=== PATIENT | male | born 1970 | race Caucasian/White ===

== ENCOUNTER → 2022-03-25 11:06 | Outpatient (BNVA) | payer OTHER, SELFPAY | PROVIDERS: PCP Internal Medicine; Visit Provider Nurse Practitioner Psychiatric/Mental Health | DX: Z51.81 Encounter for therapeutic drug level monitoring (principal); F11.21 Opioid dependence, in remission | CPT/HCPCS: 80305 ==

== ENCOUNTER → 2022-04-08 16:05 | Outpatient (BNVA) | payer OTHER, SELFPAY | PROVIDERS: PCP Internal Medicine; Visit Provider Nurse Practitioner Psychiatric/Mental Health | DX: Z51.81 Encounter for therapeutic drug level monitoring (principal); F11.21 Opioid dependence, in remission | CPT/HCPCS: 80305 ==

== ENCOUNTER → 2022-04-29 16:16 | Outpatient (BNVA) | payer OTHER, SELFPAY | PROVIDERS: PCP Internal Medicine; Visit Provider Nurse Practitioner Psychiatric/Mental Health | DX: F11.21 Opioid dependence, in remission (principal); Z51.81 Encounter for therapeutic drug level monitoring; Z79.899 Other long term (current) drug therapy | CPT/HCPCS: 80305 ==

== ENCOUNTER → 2022-05-28 16:23 | Outpatient (BNVA) | payer OTHER, SELFPAY | PROVIDERS: PCP Internal Medicine; Visit Provider Nurse Practitioner Psychiatric/Mental Health | DX: Z13.89 Encounter for screening for other disorder (principal) ==

== ENCOUNTER → 2022-06-25 15:30 | Outpatient (BNVA) | payer OTHER, SELFPAY | PROVIDERS: PCP Internal Medicine; Visit Provider Nurse Practitioner Psychiatric/Mental Health ==

== ENCOUNTER → 2022-07-23 16:00 | Outpatient (BNVA) | payer OTHER, SELFPAY | PROVIDERS: PCP Internal Medicine; Visit Provider Nurse Practitioner Psychiatric/Mental Health ==

== ENCOUNTER 2022-09-17 15:32 | Outpatient (AMB) | payer OTHER, SELFPAY ==
--- NOTE | 2022-09-17 15:34 | A.OFFVIS_ITS ---
Intake Vital Signs 09/17/22 15:45 BP 132/86 Blood Pressure Location Lt radial Position Sitting Pulse 73 Pulse Source Pulse Oximeter Pulse Oximetry (%) 97 Oxygen Delivery Method Room Air Intake Visit Reasons: mat visit Intake Note: The patient is here for a mat visit Director Of Exhibits Required: No Allergies No Known Allergies Allergy (Verified 09/17/22 15:34) Do you need a note to return to daycare/school/sports/work: No HPI mat visit HPI Details Patient presents for follow up Currently prescribed Suboxone 4mg QD Doing well with recovery. No questions or concerns at this time realted to medication Sharing recent challenges with MIL moving to [place] and dx of dementia Review of Systems Const Reports as per HPI and Reports no additional complaints Physical Exam Vital Signs: Last Vital Signs Pulse 73 09/17/22 15:45 BP 132/86 09/17/22 15:45 Pulse Ox 97 09/17/22 15:45 Oxygen Delivery Method Room Air 09/17/22 15:45 Const General: cooperative, healthy appearing, no acute distress and alert Nutritional Appearance: average body habitus Orientation/consciousness: patient oriented x3 Limitations: no limitations Neuro General: patient oriented x3 Psych Appearance: well kempt Mental Status: mental status grossly normal Speech and movement: Normal speech and movement present Affect: normal affect Attitude: cooperative Thought process: Normal thought process present Thought content: Normal thought content present Insight: Good insight present (Psych) Judgement: Good judgement present (Psych) Assessment & Plan Assessment & Plan (1) Opioid use disorder, moderate, in sustained remission: Code(s): F11.21 - Opioid dependence, in remission Plan: * continue suboxone at current dose * follow up 8 weeks * nicotine patch refilled as patient is working to d/c smoking Medications: New nicotine 1 patch transdermal Q24H 30 ea 0RF Refilled buprenorphine-naloxone 4-1 mg (Suboxone) 1 film sublingual DAILY 30 ea 1RF Discontinued nicotine Discontinued Reason: Doctor's Order 1 patch transdermal DAILY 28 ea 0RF Coding Level of Care Code Est Pt Level 3 (48260) Diagnoses Opioid use disorder, moderate, in sustained remission F11.21
[2022-09-17 15:45] VITALS: BP 132/86; PULSE 73; O2SAT 97
== END 2022-09-17 16:15 | disposition home or self-care (01) ==
LOC: HO.HCC 15:32
PROVIDERS: PCP Internal Medicine; Visit Provider Nurse Practitioner Psychiatric/Mental Health
DX: F11.21 Opioid dependence, in remission (principal)
CPT/HCPCS: 99213

== ENCOUNTER → 2022-09-17 15:32 | Outpatient (BNVA) | payer OTHER, SELFPAY | PROVIDERS: PCP Internal Medicine; Visit Provider Nurse Practitioner Psychiatric/Mental Health ==

== ENCOUNTER 2022-11-12 15:25 | Outpatient (AMB) | payer OTHER, SELFPAY ==
--- NOTE | 2022-11-12 15:31 | A.OFFVIS_ITS ---
Intake Vital Signs 11/12/22 15:43 BP 124/72 Blood Pressure Location Lt radial Position Sitting Pulse 88 Pulse Source Pulse Oximeter Pulse Oximetry (%) 97 Oxygen Delivery Method Room Air Intake Visit Reasons: mat visit Intake Note: The patient presents for a at visit Allergies No Known Allergies Allergy (Verified 11/12/22 15:43) Do you need a note to return to daycare/school/sports/work: No HPI mat visit HPI Details Pt presents for OUD treatment follow up Currently being prescribed Suboxone 4mg QD Denies any side effects related to medication no questions or concerns at this time patient has not smoked in 3 weeks! Review of Systems Const Reports as per HPI and Reports no additional complaints Physical Exam Vital Signs: Last Vital Signs Pulse 88 11/12/22 15:43 BP 124/72 11/12/22 15:43 Pulse Ox 97 11/12/22 15:43 Oxygen Delivery Method Room Air 11/12/22 15:43 Const General: cooperative, healthy appearing, no acute distress and alert Nutritional Appearance: average body habitus Orientation/consciousness: patient oriented x3 Limitations: no limitations Neuro General: patient oriented x3 Psych Appearance: well kempt Mental Status: mental status grossly normal Speech and movement: Normal speech and movement present Affect: normal affect Attitude: cooperative Thought process: Normal thought process present Thought content: Normal thought content present Insight: Good insight present (Psych) Judgement: Good judgement present (Psych) Assessment & Plan Assessment & Plan (1) Opioid use disorder, moderate, in sustained remission: Code(s): F11.21 - Opioid dependence, in remission Plan: * continue suboxone at current dose * follow up 8 weeks Medications: Refilled buprenorphine-naloxone 4-1 mg (Suboxone) 1 film sublingual DAILY 30 ea 1RF Coding Level of Care Code Est Pt Level 3 (85715) Diagnoses Opioid use disorder, moderate, in sustained remission F11.21
[2022-11-12 15:43] VITALS: BP 124/72; PULSE 88; O2SAT 97
== END 2022-11-12 16:10 | disposition home or self-care (01) ==
PROVIDERS: PCP Internal Medicine; Visit Provider Nurse Practitioner Psychiatric/Mental Health
DX: F11.21 Opioid dependence, in remission (principal)
CPT/HCPCS: 99213

== ENCOUNTER → 2022-11-12 15:25 | Outpatient (BNVA) | payer OTHER, SELFPAY | PROVIDERS: PCP Internal Medicine; Visit Provider Nurse Practitioner Psychiatric/Mental Health ==

== ENCOUNTER 2023-01-13 15:54 | Outpatient (AMB) | payer OTHER, SELFPAY ==
--- NOTE | 2023-01-13 15:55 | A.OFFVIS_ITS ---
Intake Vital Signs 01/13/23 16:04 BP 124/72 Blood Pressure Location Lt radial Position Sitting Pulse 70 Pulse Source Pulse Oximeter Pulse Oximetry (%) 95 Oxygen Delivery Method Room Air Intake Visit Reasons: mat visit Intake Note: the patient presents for a mat visit Acupuncturist Required: No Allergies No Known Allergies Allergy (Verified 01/13/23 15:57) Do you need a note to return to daycare/school/sports/work: No HPI mat visit HPI Details Patient presents for DESIRE treatment follow up Currently prescribed Suboxone 4mg QD Doing well with recovery Has discontinued marijuana use (edibles) over the last 2 months Review of Systems Const Reports as per HPI and Reports no additional complaints Physical Exam Vital Signs: Last Vital Signs Pulse 70 01/13/23 16:04 BP 124/72 01/13/23 16:04 Pulse Ox 95 01/13/23 16:04 Oxygen Delivery Method Room Air 01/13/23 16:04 Const General: cooperative, healthy appearing, no acute distress and alert Nutritional Appearance: average body habitus Orientation/consciousness: patient oriented x3 Limitations: no limitations Neuro General: patient oriented x3 Psych Appearance: well kempt Mental Status: mental status grossly normal Speech and movement: Normal speech and movement present Affect: normal affect Attitude: cooperative Thought process: Normal thought process present Thought content: Normal thought content present Insight: Good insight present (Psych) Judgement: Good judgement present (Psych) Assessment & Plan Assessment & Plan (1) Opioid use disorder, moderate, in sustained remission: Code(s): F11.21 - Opioid dependence, in remission Plan: * continue suboxone at current dose * follow up 8 weeks Medications: Refilled buprenorphine-naloxone 4-1 mg (Suboxone) 1 film sublingual DAILY 30 ea 1RF Discontinued nicotine Discontinued Reason: Patient no longer taking 1 patch transdermal Q24H 30 ea 0RF Coding Level of Care Code Est Pt Level 3 (33665) Diagnoses Opioid use disorder, moderate, in sustained remission F11.21
[2023-01-13 16:04] VITALS: BP 124/72; PULSE 70; O2SAT 95
== END 2023-01-13 16:31 | disposition home or self-care (01) ==
PROVIDERS: PCP Internal Medicine; Visit Provider Nurse Practitioner Psychiatric/Mental Health
DX: F11.21 Opioid dependence, in remission (principal)
CPT/HCPCS: 99213

== ENCOUNTER 2023-03-11 15:52 | Outpatient (AMB) | payer OTHER, SELFPAY ==
--- NOTE | 2023-03-11 15:56 | MHC.AM.SUB ---
Intake Vital Signs 03/11/23 16:02 BP 128/70 Blood Pressure Location Lt radial Position Sitting Pulse 74 Pulse Source Pulse Oximeter Pulse Oximetry (%) 97 Oxygen Delivery Method Room Air Intake Visit Reasons: mat visit Intake Note: THE PATIENT PRESENT FOR A MAT VISIT Journalism Instructor Required: No Allergies No Known Allergies Allergy (Verified 03/11/23 16:03) HPI mat visit HPI Details Patient presents for follow up Currently prescribed Suboxone 4mg BID No issues related to recovery Has been going to the gym and working to focus more on his health Review of Systems Const Reports as per HPI and Reports no additional complaints Physical Exam Vital Signs: Last Vital Signs Pulse 74 03/11/23 16:02 BP 128/70 03/11/23 16:02 Pulse Ox 97 03/11/23 16:02 Oxygen Delivery Method Room Air 03/11/23 16:02 Const General: cooperative, healthy appearing, no acute distress and alert Nutritional Appearance: average body habitus Orientation/consciousness: patient oriented x3 Limitations: no limitations Neuro General: patient oriented x3 Psych Appearance: well kempt Mental Status: mental status grossly normal Speech and movement: Normal speech and movement present Affect: normal affect Attitude: cooperative Thought process: Normal thought process present Thought content: Normal thought content present Insight: Good insight present (Psych) Judgement: Good judgement present (Psych) Assessment & Plan Assessment & Plan (1) Opioid use disorder, moderate, in sustained remission: Code(s): F11.21 - Opioid dependence, in remission Plan: continue suboxone at current dose follow up 8 weeks Medications: Refilled buprenorphine-naloxone 4-1 mg (Suboxone) 1 film sublingual DAILY 30 ea 1RF Coding Level of Care Code Est Pt Level 3 (50564) Diagnoses Opioid use disorder, moderate, in sustained remission F11.21
[2023-03-11 16:02] VITALS: BP 128/70; PULSE 74; O2SAT 97
== END 2023-03-11 16:32 | disposition home or self-care (01) ==
PROVIDERS: PCP Internal Medicine; Visit Provider Nurse Practitioner Psychiatric/Mental Health
DX: F11.21 Opioid dependence, in remission (principal)
CPT/HCPCS: 99213

== ENCOUNTER → 2023-03-11 15:52 | Outpatient (BNVA) | payer OTHER, SELFPAY | PROVIDERS: PCP Internal Medicine; Visit Provider Nurse Practitioner Psychiatric/Mental Health ==

== ENCOUNTER 2023-04-30 15:48 | Outpatient (AMB) | payer OTHER, SELFPAY ==
--- NOTE | 2023-04-30 15:50 | A.OFFVISCC_ITS ---
Intake Vital Signs 04/30/23 16:00 BP 128/70 Blood Pressure Location Lt radial Position Sitting Pulse 78 Pulse Source Pulse Oximeter Pulse Oximetry (%) 96 Oxygen Delivery Method Room Air Intake Visit Reasons: mat visit Intake Note: the patient presents for a mat visit Concaving Machine Operator Required: No Allergies No Known Allergies Allergy (Verified 04/30/23 15:51) Do you need a note to return to daycare/school/sports/work: No HPI mat visit HPI Details Pt presents for treatment follow up Currently being prescribed Suboxone 4mg QD Denies any side effects related to medication Denies any issues related to medication working to get healthier Review of Systems Const Reports as per HPI and Reports no additional complaints Physical Exam Vital Signs: Last Vital Signs Pulse 78 04/30/23 16:00 BP 128/70 04/30/23 16:00 Pulse Ox 96 04/30/23 16:00 Oxygen Delivery Method Room Air 04/30/23 16:00 Const General: cooperative, healthy appearing, no acute distress and alert Nutritional Appearance: average body habitus Orientation/consciousness: patient oriented x3 Limitations: no limitations Neuro General: patient oriented x3 Psych Appearance: well kempt Mental Status: mental status grossly normal Speech and movement: Normal speech and movement present Affect: normal affect Attitude: cooperative Thought process: Normal thought process present Thought content: Normal thought content present Insight: Good insight present (Psych) Judgement: Good judgement present (Psych) Assessment & Plan Assessment & Plan (1) Opioid use disorder, moderate, in sustained remission: Code(s): F11.21 - Opioid dependence, in remission Plan: * continue suboxone at current dose * follow up 8 weeks Medications: Refilled buprenorphine-naloxone 4-1 mg (Suboxone) 1 film sublingual DAILY 30 ea 1RF Coding Level of Care Code Est Pt Level 3 (67457) Diagnoses Opioid use disorder, moderate, in sustained remission F11.21
[2023-04-30 16:00] VITALS: BP 128/70; PULSE 78; O2SAT 96
== END 2023-04-30 16:20 | disposition home or self-care (01) ==
PROVIDERS: PCP Internal Medicine; Visit Provider Nurse Practitioner Psychiatric/Mental Health
DX: F11.21 Opioid dependence, in remission (principal)
CPT/HCPCS: 99213

== ENCOUNTER → 2023-04-30 15:48 | Outpatient (BNVA) | payer OTHER, SELFPAY | PROVIDERS: PCP Internal Medicine; Visit Provider Nurse Practitioner Psychiatric/Mental Health ==

== ENCOUNTER 2023-06-17 15:30 | Outpatient (AMB) | payer OTHER, SELFPAY ==
[2023-06-17 15:34] VITALS: BP 150/92; PULSE 83; O2SAT 94
--- NOTE | 2023-06-17 15:34 | MHC.AM.SUB ---
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 He feels as though he is being stalked and harassed by this gang, states the police are involved Feels as though the stress of this has caused occasional cravings - generally occurring in the afternoon. He expressed concern about increasing dose stating how he used to be on 16mg and has worked his way down to 4mg/day, but is also concerns about the cravings he has been feeling. He just got a big raise at work which he is excited about Has no other concerns today Review of Systems Const Reports as per HPI Physical Exam Vital Signs: Last Vital Signs Pulse 83 06/17/23 15:34 BP 150/92 H 06/17/23 15:34 Pulse Ox 94 06/17/23 15:34 Oxygen Delivery Method Room Air 06/17/23 15:34 Const General: cooperative and no acute distress Resp Effort & Inspection: normal respiratory effort Psych Appearance: grossly normal and well kempt Mental Status: mental status grossly normal Speech and movement: Normal speech and movement present Affect: normal affect Attitude: cooperative Thought process: Normal thought process present Assessment & Plan Assessment & Plan (1) Opioid use disorder, moderate, in sustained remission: Code(s): F11.21 - Opioid dependence, in remission Category: Medical Plan: -Discussed with him trialing the addition of 2mg for him to take in the afternoon, reviewed with him it is not a step backward, but a sign of growth to admit he is having cravings and to seek alternative solutions rather than using. He is agreeable to the 2mg trial. -Follow up 2 months Medications: New buprenorphine-naloxone 2-0.[address] 1 strip/tab under (each) side of tongue 1 film buccal DAILY 30 ea 0RF buprenorphine-naloxone 2-[address] 1 strip/tab under (each) side of tongue 1 film buccal DAILY 10 ea 0RF
== END 2023-06-17 16:01 | disposition home or self-care (01) ==
PROVIDERS: PCP Internal Medicine; Visit Provider Nurse Practitioner Family
DX: F11.21 Opioid dependence, in remission (principal)
CPT/HCPCS: 99213

== ENCOUNTER → 2023-06-17 15:30 | Outpatient (BNVA) | payer OTHER, SELFPAY | PROVIDERS: PCP Internal Medicine; Visit Provider Nurse Practitioner Family ==

== ENCOUNTER 2023-08-29 13:54 | Outpatient (AMB) | payer OTHER, SELFPAY ==
--- NOTE | 2023-08-29 15:20 | A.OFFVISCC_ITS ---
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 No definitive plans have been made Review of Systems Const Reports as per HPI and Reports no additional complaints Physical Exam Const General: cooperative and no acute distress Resp Effort & Inspection: normal respiratory effort Psych Appearance: grossly normal and well kempt Mental Status: mental status grossly normal Speech and movement: Normal speech and movement present Affect: normal affect Attitude: cooperative Thought process: Normal thought process present Assessment & Plan Assessment & Plan (1) Opioid use disorder, moderate, in sustained remission: Code(s): F11.21 - Opioid dependence, in remission Category: Medical Plan: * continue suboxone at current dose * follow up 2 months Medications: Refilled buprenorphine-naloxone 4-1 mg (Suboxone) 1 film sublingual DAILY 30 ea 1RF
== END 2023-08-29 14:41 | disposition home or self-care (01) ==
PROVIDERS: PCP Internal Medicine; Visit Provider Nurse Practitioner Psychiatric/Mental Health
DX: F11.21 Opioid dependence, in remission (principal)
CPT/HCPCS: 99213

== ENCOUNTER → 2023-08-29 13:54 | Outpatient (BNVA) | payer OTHER, SELFPAY | PROVIDERS: PCP Internal Medicine; Visit Provider Nurse Practitioner Psychiatric/Mental Health ==

== ENCOUNTER → 2023-10-27 15:56 | Outpatient (BNVA) | payer OTHER, SELFPAY | PROVIDERS: PCP Internal Medicine ==

== ENCOUNTER → 2023-12-01 15:34 | Outpatient (BNVA) | payer OTHER, SELFPAY | PROVIDERS: PCP Internal Medicine; Visit Provider Nurse Practitioner Psychiatric/Mental Health ==

== ENCOUNTER → 2023-12-23 14:10 | Outpatient (BNVA) | payer OTHER, SELFPAY | PROVIDERS: PCP Internal Medicine ==

== ENCOUNTER 2024-01-26 15:38 | Outpatient (AMB) | payer OTHER, SELFPAY ==
--- NOTE | 2024-01-26 15:51 | A.OFFVISCC_ITS ---
Intake Visit Reasons: MAT Office Allergies No Known Allergies Allergy (Verified 04/30/23 15:51) Medication List - Last Reconciled 01/26/24 by Tracy Soria CNP alprazolam ER (Xanax XR) 6 mg PO BEDTIME buprenorphine-naloxone 2-0.5 mg 1 film buccal DAILY buprenorphine-naloxone 4-1 mg (Suboxone) 1 film sublingual DAILY clonazepam (Klonopin) 1 mg PO BEDTIME mirtazapine (Remeron SolTab) 45 mg PO BEDTIME HPI HPI MAT Office: Details: Patient presents for follow up Currently prescribed Suboxone 6mg daily Doing well with this dose, however does not want to continue past this month Has not been able to connect with therapist--had to reschedule intake due to weather However, is hoping for someplace closer to his home. Provided with additional resources on locating providers Review of Systems Const Reports as per HPI and Reports no additional complaints Physical Exam Const General: cooperative and no acute distress Resp Effort & Inspection: normal respiratory effort Psych Appearance: grossly normal and well kempt Mental Status: mental status grossly normal Speech and movement: Normal speech and movement present Affect: normal affect Attitude: cooperative Thought process: Normal thought process present Assessment & Plan Assessment & Plan (1) Opioid use disorder, moderate, in sustained remission: Code(s): F11.21 - Opioid dependence, in remission Category: Medical Plan: * continue suboxone at current dose * follow up 2 months * encouraged to call office should he need to be seen before next scheduled appt Medications: New valacyclovir 500 mg PO DAILY Refilled buprenorphine-naloxone 2-0.5 mg 1 film buccal DAILY 10 ea 1RF
== END 2024-01-26 16:26 | disposition home or self-care (01) ==
PROVIDERS: PCP Internal Medicine; Visit Provider Nurse Practitioner Psychiatric/Mental Health
DX: F11.21 Opioid dependence, in remission (principal)
CPT/HCPCS: 99213

== ENCOUNTER 2024-04-12 15:41 | Outpatient (AMB) | payer OTHER, SELFPAY ==
--- NOTE | 2024-04-12 16:17 | A.OFFVISCC_ITS ---
Intake Visit Reasons: MAT Office Allergies No Known Allergies Allergy (Verified 04/30/23 15:51) HPI HPI MAT Office: Details: Patient presents for follow up Currently prescribed Suboxone 4mg daily Increased stress at home and new PCP who he reports is questioning ongoing benzodiazepine prescriptions Would like to get into therapy--plans on calling tomorrow to establish care Denies any issues related to recovery or medication Review of Systems Const Reports as per HPI Psych Reports anxiety and Reports difficulty concentrating Physical Exam Const General: cooperative and no acute distress Resp Effort & Inspection: normal respiratory effort Psych Appearance: grossly normal and well kempt Mental Status: mental status grossly normal Speech and movement: Normal speech and movement present Affect: Anxious affect present Attitude: cooperative Thought process: Normal thought process present Insight: Good insight present (Psych) Judgement: Good judgement present (Psych) Assessment & Plan Assessment & Plan (1) Opioid use disorder, moderate, in sustained remission: Code(s): F11.21 - Opioid dependence, in remission Category: Medical Plan: * continue suboxone at current dose * patient to call therapist to establish care * follow up 1 month
== END 2024-04-12 16:55 | disposition home or self-care (01) ==
PROVIDERS: PCP Internal Medicine; Visit Provider Nurse Practitioner Psychiatric/Mental Health
DX: F11.21 Opioid dependence, in remission (principal)
CPT/HCPCS: 99213

== ENCOUNTER → 2024-04-12 15:41 | Outpatient (BNVA) | payer OTHER, SELFPAY | PROVIDERS: PCP Internal Medicine; Visit Provider Nurse Practitioner Psychiatric/Mental Health ==

== ENCOUNTER 2024-05-12 16:31 | Outpatient (AMB) | payer OTHER, SELFPAY ==
[2024-05-12 17:03] VITALS: PULSE 76; O2SAT 98
--- NOTE | 2024-05-12 17:03 | MHC.OFFVIS ---
Vital Signs 05/12/24 17:03 Weight 236 lb Pulse 76 Pulse Source Pulse Oximeter Pulse Oximetry (%) 98 Oxygen Delivery Method Room Air Intake Visit Reasons: MAT Office Allergies No Known Allergies Allergy (Verified 05/12/24 17:04) HPI HPI MAT Office: Details: He is trying to taper off Suboxone. He is using 4/1 a day and sometimes not enough. He has used opioids and cocaine in past. Review of Systems Const All systems reviewed & are unremarkable except as noted in HPI and below Physical Exam Vital Signs: Last Vital Signs Pulse 76 05/12/24 17:03 Pulse Ox 98 05/12/24 17:03 Oxygen Delivery Method Room Air 05/12/24 17:03 Const General: cooperative Assessment & Plan Assessment & Plan (1) Opioid use disorder, moderate, in sustained remission: Comment: He has been doing well but needs 8 mg some days He is going to get checked for PTSD due to prior trauma Code(s): F11.21 - Opioid dependence, in remission Category: Medical Plan: Increase to 8 mg daily See in one month. Check labs. Orders: Orders HIV Ab/Ag Today F11.21 - Opioid dependence, in remission T Spot TB Today F11.21 - Opioid dependence, in remission Hepatitis A IgG Today F11.21 - Opioid dependence, in remission Hepatitis C Antibody Reflex Today F11.21 - Opioid dependence, in remission Hepatitis B Surface Antibody Today F11.21 - Opioid dependence, in remission Hepatitis B Surface Antigen Today F11.21 - Opioid dependence, in remission Hepatitis B Core Antibody Today F11.21 - Opioid dependence, in remission Syphilis Screen Today F11.21 - Opioid dependence, in remission Medications: New buprenorphine-naloxone 4-1 mg (Suboxone) place 1 strip/tab under (each) side of tongue 2 film buccal Q24H 30 days 60 ea 0RF Coding Level of Care Code Est Pt Level 3 (73512) Diagnoses Opioid use disorder, moderate, in sustained remission F11.21
== END 2024-05-12 17:26 | disposition home or self-care (01) ==
LOC: HO.HCC 16:31
PROVIDERS: PCP Internal Medicine; Visit Provider Internal Medicine
DX: F11.21 Opioid dependence, in remission (principal)
CPT/HCPCS: 99213

== ENCOUNTER → 2024-05-12 16:31 | Outpatient (BNVA) | payer OTHER, SELFPAY | PROVIDERS: PCP Internal Medicine; Visit Provider Internal Medicine ==

== ENCOUNTER 2024-08-26 13:34 | Outpatient (AMB) | payer OTHER, SELFPAY ==
[2024-08-26 14:08] VITALS: BP 146/80; PULSE 86; O2SAT 98
--- NOTE | 2024-08-26 14:08 | MHC.OFFVIS ---
Vital Signs 08/26/24 14:08 Weight 237 lb BP 146/80 H Pulse 86 Pulse Oximetry (%) 98 Intake Visit Reasons: MAT/ patient is asking about Brixadi Allergies No Known Allergies Allergy (Verified 08/26/24 14:10) Medication List - Last Reconciled 08/26/24 by CLARI Hinton mirtazapine (Remeron SolTab) 45 mg PO BEDTIME valacyclovir 500 mg PO DAILY HPI Comments Details: The patient is a 54-year-old male presents for a follow-up r/t substance use disorder. Reports in May was inpatient at [facility] for 6 days for detox from benzodiazepines and alcohol use. Post discharge from hospital went to [facility] for a 30 day inpatient program currently in a partial hospitalization program through [facility] in [place] and is living in a sober house. Denies opiate, alcohol, or other substance. Currently on buprenorphine-naloxone 8-2 mg daily and looking to reduce the dose, as his goal is to stop taking buprenorphine-naloxone. Review of Systems Const All systems reviewed & are unremarkable except as noted in HPI and below Physical Exam Vital Signs: Last Vital Signs Pulse 86 08/26/24 14:08 BP 146/80 H 08/26/24 14:08 Pulse Ox 98 08/26/24 14:08 Const General: cooperative Psych Appearance: well kempt Mental Status: mental status grossly normal Speech and movement: Normal speech and movement present Affect: Blunted affect present Attitude: cooperative Thought process: Normal thought process present Thought content: Normal thought content present Insight: Good insight present (Psych) Judgement: Good judgement present (Psych) Assessment & Plan Assessment & Plan (1) Opioid use disorder, moderate, in sustained remission: Code(s): F11.21 - Opioid dependence, in remission Category: Medical Plan The plan of care is to start on lower dose of buprenorphine-naloxone 4-1 mg daily. During the visit the patient asked about Brixadi, after education patient decided to proceed with a lower dose of buprenorphine-naloxone as his goal is to stop taking the medication. Medications: New buprenorphine-naloxone 4-1 mg (Suboxone) one film sublingually daily. 1 film sublingual Q24H 14 ea 0RF 14 days Patient Instructions: - Start on lower dose of sublingual buprenorphine-naloxone 4-1 mg daily. - Follow up in two weeks r sooner, if needed. - Call with questions, concerns, or side effects. Coding Level of Care Code Est Pt Level 3 (56690) Diagnoses Opioid use disorder, moderate, in sustained remission F11.21
--- OUTSIDE RECORDS SUMMARY | 2024-08-26 14:10 | XMS_ITS | Clinical Summary ---
Author Organization LL [address] [facility] Address [address] [place] [address] Phone Care Team Providers Care Digital Performance Analyst Name Role Phone Jose Angel Blair MD Primary Care Provide r Allergies No known active allergies Medications valACYclovir (VALTREX) 500 mg tablet Take 1 tablet (500 mg total) by mouth 1 (one) time each day. 5 Active folic acid (FOLVITE) 1 mg tablet Take 1 tablet (1 mg total) by mouth 1 (one) time each day. 30 each 11 5 06/12/19 26 Active mirtazapine (REMERON) 30 mg tablet Take 1 tablet (30 mg total) by mouth at bedtime. 30 each 5 Active gabapentin (NEURONTIN) 100 mg tablet Take 8 tablets (800 mg total) by mouth 3 (three) times a day for 3 days, THEN 6 tablets (600 mg total) 3 (three) times a day for 5 days, THEN 6 tablets (600 mg total) 2 (two) times a day for 5 days, THEN 3 tablets (300 mg total) 3 (three) times a day for 5 days, THEN 3 tablets (300 mg total) 2 (two) times a day for 5 days, THEN 3 tablets (300 mg total) at bedtime for 5 days. 5 Active naloxone (NARCAN) 4 mg/0.1 mL nasal sprayIndications :opioid overdose,opioid- induced respiratory depression Administer 1 each (4 mg total) into affected nostril(s) if needed for opioid reversal or respiratory depression. Give 4 mg (1 spray) into one nostril. May repeat every 2-3 minutes if needed, alternating nostrils, until medical assistance becomes available. 2 each 3 5 Active venlafaxine XR (EFFEXOR-XR) 75 mg 24 hr capsule Take 1 capsule (75 mg total) by mouth 1 (one) time each day with breakfast. Do not crush or chew. 30 each 11 5 06/16/19 26 Active Active Problems Problem Noted Date Diagnosed Date Alcohol use disorder 06/11/2024 Benzodiazepine withdrawal wi th complication ([facility] V24, [facility] V28) 06/08/2024 Resolved Problems Problem Noted Date Diagnosed Date Resolved Date Alcohol withdrawal syndrome without complication ([facility] V24, [facility] V28) 06/11/2024 06/11/2024 Encounters Date Type Department Care Team Description 06/08/2024 3:14 PM EDT - 06/14/2024 4:28 PM EDT Hospital Encounter [facility] [address] [place] [address] Peter Narvaez MD Japaridze, Anna, MD Zipagan, James T, MD Benzodiazepine withdrawal with complication ([facility] V24, [facility] V28) (Primary Dx); Alcohol use disorder; Alcohol withdrawal syndrome without complication ([facility] V24, [facility] V28) Discharge Disposition: Another Health Care Institution Not Defined 06/07/2024 9:30 PM EDT - 06/07/2024 11:25 PM EDT Emergency [facility] Emergency [address] [place] [address] Saul Cordoba MD Benzodiazepine withdrawal without complication ([facility] V24, [facility] V28) (Primary Dx); Alcohol withdrawal syndrome without complication ([facility] V24, [facility] V28) Discharge Disposition: Home or Self Care from Last 3 Months Medical History Medical History Date Comments ETOH abuse Opiate dependence ([facility] V24, [facility] V28) Anxiety Depression Insomnia Family History Medical History Relation Name Comments Alcohol abuse Father Relation Name Status Comments Father Social History Tobacco Use Types Packs/Day Years Used Date Smoking Tobacco: Every Day Cigarettes Smokeless Tobacco: Never Tobacco Cessation:Ready to Q uit: Not Asked; Counseling Given: Not Answered Alcohol Use Standard Drinks/Week Comments Yes 0 (1 standard drink = 0.6 oz pur e alcohol) Heavy Interpersonal Safety Answer Date Record ed Physical Abuse 06/09/2024 Verbal Abuse 06/09/2024 Sex and Gender Information Value Date Recorded Sex Assigned at Male 06/08/2024 4:53 PM EDT Legal Sex Male 5:34 AM EST Gender Identity Male 06/08/2024 4:53 PM EDT Sexual Orientation Straight 06/08/2024 4: 53 PM EDT Obstetrics History Last Filed Vital Signs Vital Sign Reading Time Taken Comments Blood Pressure 131/90 06/14/2024 3:21 PM EDT Pulse 71 06/14/2024 3:21 PM EDT Temperature 36.3 C (97.4 F) 06/14/2024 3:21 PM EDT Respiratory Rate 16 06/14/2024 3:21 PM EDT Oxygen Saturation 97% 06/14/2024 3:21 PM EDT Inhaled Oxygen Concentration - - Weight 103 kg (226 lb 6.4 oz) 06/09/2024 2:24 AM EDT Height 188 cm (6' 2.02 ) 06/09/2024 2:24 AM EDT Body Mass Index 29.06 06/09/2024 2:24 AM EDT Plan of Treatment Health Maintenance Due Date Last Done Comments Hepatitis A Vaccines (1 of 2 - Risk 2-dose series) 1987 Hepatitis B Vaccines (1 of 3 - 19+ 3-dose series) 1987 Pneumococcal Vaccine: 50+ Years (1 of 2 - PCV) 1987 Pneumococcal Vaccine: Pediatrics (0 to 5 Years) and At-Risk Patients (6 to 49 Years) (1 of 2 - PCV) 1987 Cholesterol Screening (Lipid Panel) 03/16/2024 Colorectal Cancer Screening: Colonoscopy 03/16/2024 Depression Screening 03/16/2024 HIV Screening 03/16/2024 Hepatitis C Screening 03/16/2024 Social Influencers of Health Screening 03/16/2024 Influenza Vaccine (#1) 2024 12/23/2023, 2015 DTaP,Tdap,and Td Vaccines (2 - Td or Tdap) 12/26/2030 12/26/2020 Zoster Vaccines Completed 11/15/2021, 09/13/2021 COVID-19 Vaccine Completed 12/23/2023, , 05/25/2021, Additional history exists HIB Vaccines Aged Out No longer eligi ble based on patient's age to complete this topic HPV Vaccines Aged Out No longer eligi ble based on patient's age to complete this topic IPV Vaccines Aged Out No longer eligi ble based on patient's age to complete this topic MMR Vaccines Aged Out No longer eligi ble based on patient's age to complete this topic Meningococcal ACWY Vaccine Aged Out N o longer eligible based on patient's age to complete this topic Meningococcal B Vaccine Aged Out No l onger eligible based on patient's age to complete this topic RSV Immunization Patients Under 20 months Aged Out No longer eligible based on patient's age to complete this topic Varicella Vaccines Aged Out No longer eligible based on patient's age to complete this topic Procedures Procedure Name Priority Date/Time Associated Diagnosis Comments ECG ANNOTATED 06/15/2024 CBC WITH AUTO DIFFERENTIAL Routine 06/13/2024 6:03 AM EDT CBC AND DIFFERENTIAL Routine 06/13/2024 6:03 AM EDT BASIC METABOLIC PANEL Routine 06/13/2024 6:03 AM EDT CBC WITH AUTO DIFFERENTIAL Routine 06/10/2024 5:42 AM EDT MAGNESIUM Routine 06/10/2024 5:42 AM EDT CBC AND DIFFERENTIAL Routine 06/10/2024 5:42 AM EDT BASIC METABOLIC PANEL Routine 06/10/2024 5:42 AM EDT PHOSPHORUS Add-On 06/09/2024 5:42 AM EDT MAGNESIUM Add-On 06/09/2024 5:42 AM EDT COMPLETE BLOOD COUNT Routine 06/09/2024 5:42 AM EDT BASIC METABOLIC PANEL Routine 06/09/2024 5:42 AM EDT METHADONE SCREEN, URINE STAT 06/08/2024 3:41 PM EDT PHENCYCLIDINE, URINE STAT 06/08/2024 3:41 PM EDT BUPRENORPHINE SCREEN, URINE STAT 06/08/2024 3:41 PM EDT DRUG ABUSE SCREEN 8A PANEL, URINE STAT 06/08/2024 3:41 PM EDT CBC WITH AUTO DIFFERENTIAL STAT 06/08/2024 3:25 PM EDT ACETAMINOPHEN LEVEL STAT 06/08/2024 3 :25 PM EDT SALICYLATE LEVEL STAT 06/08/2024 3:25 PM EDT CBC AND DIFFERENTIAL STAT 06/08/2024 3:25 PM EDT COMPREHENSIVE METABOLIC PANEL STAT 06/08/2024 3:25 PM EDT LIPASE STAT 06/08/2024 3:25 PM EDT MAGNESIUM STAT 06/08/2024 3:25 PM EDT ETHANOL STAT 06/08/2024 3:25 PM EDT ECG 12-LEAD STAT 06/08/2024 3:21 PM EDT CBC WITH AUTO DIFFERENTIAL STAT 06/07/2024 4:50 PM EDT COMPREHENSIVE METABOLIC PANEL STAT 06/07/2024 4:50 PM EDT CBC AND DIFFERENTIAL STAT 06/07/2024 4:50 PM EDT from Last 3 Months Results * ECG-Annotated (06/15/2024) us Provider Onbase MD ECG ORDERABLES Final Result * (ABNORMAL) CBC auto differential (06/13/2024 6:03 AM EDT) Only the most recent of4 resultswithin the time period is included. WBC 8.8 4.8 - 10.8 K/mcL LAB HEMETOLOGY METHOD 06/13/2024 7:01 AM [facility] RBC 4.60 4.50 - 5.50 M/mcL LAB HEMETOLOGY METHOD 06/13/2024 7:01 AM [facility] Hemoglobin 14.8 13.5 - 17.5 g/dL LAB HEMETOLOGY METHOD 06/13/2024 7:01 AM [facility] Hematocrit 43.4 42.0 - 54.0 % LAB HEMETOLOGY METHOD 06/13/2024 7:01 AM [facility] MCV 93.5 79.0 - 98.0 FL LAB HEMETOLOGY METHOD 06/13/2024 7:01 AM [facility] MCH 31.9 27.0 - 32.0 pcg LAB HEMETOLOGY METHOD 06/13/2024 7:01 AM [facility] MCHC 34.1 32.0 - 37.0 g/dL LAB HEMETOLOGY METHOD 06/13/2024 7:01 AM [facility] RDW 11.9 11.0 - 15.0 % LAB HEMETOLOGY METHOD 06/13/2024 7:01 AM [facility] Platelets 202 130 - 400 K/mcL LAB HEMETOLOGY METHOD 06/13/2024 7:01 AM [facility] MPV 12.2(H) 7.0 - 11.0 FL LAB HEMETOLOGY METHOD 06/13/2024 7:01 AM [facility] NRBC 0.0 <1.0 % LAB HEMETOLOGY METHOD 06/13/2024 7:01 AM [facility] NRBC Absolute 0.00 <0.10 K/mcL LAB HEMETOLOGY METHOD 06/13/2024 7:01 AM [facility] Neutrophils Relative 64.3 % LAB HEMETOLOGY METHOD 06/13/2024 7:01 AM [facility] Lymphocytes Relative 25.6 % LAB HEMETOLOGY METHOD 06/13/2024 7:01 AM [facility] Monocytes Relative 6.5 % LAB HEMETOLOGY METHOD 06/13/2024 7:01 AM [facility] Eosinophils Relative 2.5 % LAB HEMETOLOGY METHOD 06/13/2024 7:01 AM [facility] Basophils Relative 0.8 % LAB HEMETOLOGY METHOD 06/13/2024 7:01 AM [facility] Immature Granulocytes Relative 0.3 % LAB HEMETOLOGY METHOD 06/13/2024 7:01 AM [facility] Neutrophils Absolute 5.64 1.50 - 7.00 K/mcL LAB HEMETOLOGY METHOD 06/13/2024 7:01 AM [facility] Lymphocytes Absolute 2.25 1.00 - 5.00 K/mcL LAB HEMETOLOGY METHOD 06/13/2024 7:01 AM [facility] Monocytes Absolute 0.57 0.20 - 1.00 K/mcL LAB HEMETOLOGY METHOD 06/13/2024 7:01 AM [facility] Eosinophils Absolute 0.22 0.00 - 0.50 K/mcL LAB HEMETOLOGY METHOD 06/13/2024 7:01 AM [facility] Basophils Absolute 0.07 0.00 - 0.20 K/mcL LAB HEMETOLOGY METHOD 06/13/2024 7:01 AM [facility] Immature Granulocytes Absolute 0.03 0.00 - 0.03 K/mcL LAB HEMETOLOGY METHOD 06/13/2024 7:01 AM [facility] Blood Venous blood specimen / Unknown Venipuncture / Unknown 06/13/2024 6:03 AM EDT 06/13/2024 6:48 AM EDT us Joan Berger MD LAB BLOOD ORDERABLES Final Res ult [facility] [address] [place] [address], [place] [phone] * (ABNORMAL) Basic metabolic panel (06/13/2024 6:03 AM EDT) Only the most recent of3 resultswithin the time period is included. Sodium 136 133 - 145 mmol/L LAB CHEMISTRY METHOD 06/13/2024 7:22 AM [facility] Potassium 4.0 3.5 - 5.5 mmol/L LAB CHEMISTRY METHOD 06/13/2024 7:22 AM [facility] Chloride 101 96 - 110 mmol/L LAB CHEMISTRY METHOD 06/13/2024 7:22 AM [facility] CO2 30 21 - 32 mmol/L LAB CHEMISTRY METHOD 06/13/2024 7:22 AM [facility] Anion Gap 5 3 - 11 LAB CHEMISTRY METHOD 06/13/2024 7:22 AM [facility] Glucose 99 70 - 100 mg/dL LAB CHEMISTRY METHOD 06/13/2024 7:22 AM [facility] BUN 9 5 - 25 mg/dL LAB CHEMISTRY METHOD 06/13/2024 7:22 AM [facility] Creatinine 0.68(L) 0.70 - 1.30 mg/dL LAB CHEMISTRY METHOD 06/13/2024 7:22 AM [facility] eGFR 109 >=60 mL/min/1. 73m2 LAB CHEMISTRY METHOD 06/13/2024 7:22 AM EDT [facility] Comment:Calculation based on the Chronic Kidney Disease Epidemiology Collaboration (CKD-EPI) equation refit without adjustment for race. BUN/Creatinine Ratio 13.2 LAB CHEMISTRY METHOD 06/13/2024 7:22 AM EDT [facility] Calcium 9.2 8.5 - 10.5 mg/dL LAB CHEMISTRY METHOD 06/13/2024 7:22 AM EDT [facility] Blood Venous blood specimen / Unknown Venipuncture / Unknown 06/13/2024 6:03 AM EDT 06/13/2024 6:47 AM EDT us Joan Berger MD LAB BLOOD ORDERABLES Final Res ult Performing Organization Address [facility]/ZIP Co de Phone Number [facility] [address] [place] [address], [place] [phone] * Magnesium (06/10/2024 5:42 AM EDT) Only the most recent of3 resultswithin the time period is included. Magnesium 2.4 1.9 - 2.6 mg/dL LAB CHEMISTRY METHOD 06/10/2024 7:12 AM EDT [facility] Blood Venous blood specimen / Unknown Venipuncture / Unknown 06/10/2024 5:42 AM EDT 06/10/2024 6:20 AM EDT us Joan Berger MD LAB BLOOD ORDERABLES Final Res ult Performing Organization Address City/[facility]/ZIP Co de Phone Number [facility] [address] [place] [address], [place] [phone] * (ABNORMAL) Complete blood count (06/09/2024 5:42 AM EDT) WBC 7.3 4.8 - 10.8 K/mcL LAB HEMETOLOGY METHOD 06/09/2024 8:57 AM [facility] RBC 4.40(L) 4.50 - 5.50 M/mcL LAB HEMETOLOGY METHOD 06/09/2024 8:57 AM [facility] Hemoglobin 14.1 13.5 - 17.5 g/dL LAB HEMETOLOGY METHOD 06/09/2024 8:57 AM [facility] Hematocrit 41.4(L) 42.0 - 54.0 % LAB HEMETOLOGY METHOD 06/09/2024 8:57 AM [facility] MCV 93.2 79.0 - 98.0 FL LAB HEMETOLOGY METHOD 06/09/2024 8:57 AM [facility] MCH 31.8 27.0 - 32.0 pcg LAB HEMETOLOGY METHOD 06/09/2024 8:57 AM [facility] MCHC 34.1 32.0 - 37.0 g/dL LAB HEMETOLOGY METHOD 06/09/2024 8:57 AM [facility] RDW 11.9 11.0 - 15.0 % LAB HEMETOLOGY METHOD 06/09/2024 8:57 AM [facility] Platelets 177 130 - 400 K/mcL LAB HEMETOLOGY METHOD 06/09/2024 8:57 AM [facility] MPV 12.1(H) 7.0 - 11.0 FL LAB HEMETOLOGY METHOD 06/09/2024 8:57 AM [facility] NRBC 0.0 <1.0 % LAB HEMETOLOGY METHOD 06/09/2024 8:57 AM [facility] NRBC Absolute 0.00 <0.10 K/mcL LAB HEMETOLOGY METHOD 06/09/2024 8:57 AM [facility] Blood Venous blood specimen / Unknown Venipuncture / Unknown 06/09/2024 5:42 AM EDT 06/09/2024 6:53 AM EDT Peter Narvaez MD LAB BLOOD ORDERABLES Final Res ult Performing Organization Address [facility]/ZIP Co de Phone Number [facility] [address] [place] [address], [place] [phone] * Phosphorus (06/09/2024 5:42 AM EDT) Phosphorus 2.5 2.5 - 4.5 mg/dL LAB CHEMISTRY METHOD 06/09/2024 6:00 PM EDT [facility] Blood Venous blood specimen / Unknown Venipuncture / Unknown 06/09/2024 5:42 AM EDT 06/09/2024 6:53 AM EDT Joan Berger MD LAB BLOOD ORDERABLES Final Res ult Performing Organization Address [facility] Co de Phone Number [facility] [address] [place] [address], * (ABNORMAL) Drug abuse screen 8a panel, urine (06/08/2024 3:41 PM EDT) Amphetamine Screen, Ur Negative Negative LAB CHEMISTRY METHOD 5 4:21 PM EDT [facility] Comment:Certain OTC medicati ons containing ephedrine, phenylephrine, pseudoephedrine and phenylpropanolamine can cause false positive results. Barbiturate Screen, Ur Negative Negative LAB CHEMISTRY METHOD 5 4:21 PM EDT [facility] Benzodiazepine Screen, Ur Positive(A ) Negative LAB CHEMISTRY METHOD 5 4:21 PM EDT [facility] Cocaine Screen, Ur Negative Negative LAB CHEMISTRY METHOD 5 4:21 PM EDT [facility] Opiate Screen, Ur Negative Negative LAB CHEMISTRY METHOD 5 4:21 PM EDT [facility] Cannabinoid (THC) Screen, Ur Negative Negative LAB CHEMISTRY METHOD 5 4:21 PM EDT [facility] Comment:Specimens from patie nts taking pantoprazole sodium (Protonix) have been shown to produce false positive results. Oxycodone Screen, Ur Negative Negative LAB CHEMISTRY METHOD 5 4:21 PM EDT [facility] Fentanyl, Ur Negative Negative LAB CHEMISTRY METHOD 5 4:21 PM EDT [facility] Urine Urine specimen obtained by clean catch procedure / Unknown Non-blood Collection / Unknown 06/08/2024 3:41 PM EDT 06/08/2024 3:45 PM EDT [facility] - 06/08/2024 4:21 PM EDT Assay cutoffs: Amphetamines 1000 ng/mL Barbiturates 200 ng/mL Benzodiazepines 200 ng/mL Cocaine 300 ng/mL Fentanyl 1 ng/mL Opiates 300 ng/mL Oxycodone 100 ng/mL THC 50 ng/mL Semi-quantitative assay for screening purposes only. Unconfirmed screening result should not be used for non-medical purposes. *ALTERNATE METHOD CONFIRMATION DONE UPON REQUEST ONLY* us Peter Narvaez MD LAB URINE ORDERABLES Final Res ult [facility] [address] [place] [address], * (ABNORMAL) Buprenorphine screen, urine (06/08/2024 3:41 PM EDT) Buprenorphine Screen Urine Positive (A) Negative LAB CHEMISTRY METHOD 06/08/2024 4:31 PM EDT [facility] Urine Urine specimen obtained by clean catch procedure / Unknown Non-blood Collection / Unknown 06/08/2024 3:41 PM EDT 06/08/2024 3:45 PM EDT Narrative [facility] - 06/08/2024 4:31 PM EDT Assay cutoff 5 ng/mL Semi-quantitative assay for screening purposes only. Unconfirmed screening result should not be used for non-medical purposes. *ALTERNATE METHOD CONFIRMATION DONE UPON REQUEST ONLY* Peter Narvaez MD LAB URINE ORDERABLES Final Res ult Performing Organization Address City/[facility]/ZIP Co de Phone Number [facility] [address] [place] [address], [place] [phone] * Methadone, urine (06/08/2024 3:41 PM EDT) Methadone Screen, Urine Negative Negative LAB CHEMISTRY METHOD 06/08/2024 4:31 PM EDT [facility] Comment: Assay cutoff 300 ng/mL Semi-quantitative assay for screening purposes only. Unconfirmed screening result should not be used for non-medical purposes. *ALTERNATE METHOD CONFIRMATION DONE UPON REQUEST ONLY* Urine Urine specimen obtained by clean catch procedure / Unknown Non-blood Collection / Unknown 06/08/2024 3:41 PM EDT 06/08/2024 3:45 PM EDT Peter Narvaez MD LAB URINE ORDERABLES Final Res ult Performing Organization Address City/[facility]/ZIP Co de Phone Number [facility] [address] [place] [address], [place] [phone] * Phencyclidine, urine (06/08/2024 3:41 PM EDT) PCP Scrn, Ur Negative Negative LAB CHEMISTRY METHOD 06/08/2024 4:21 PM EDT [facility] Comment: Assay cutoff 25 ng/mL Semi-quantitative assay for screening purposes only. Unconfirmed screening result should not be used for non-medical purposes. *ALTERNATE METHOD CONFIRMATION DONE UPON REQUEST ONLY* Urine Urine specimen obtained by clean catch procedure / Unknown Non-blood Collection / Unknown 06/08/2024 3:41 PM EDT 06/08/2024 3:45 PM EDT us Peter Narvaez MD LAB URINE ORDERABLES Final Res ult Performing Organization Address [facility]/ZIP Co de Phone Number [facility] [address] [place] [address], [place] [phone] * Lipase (06/08/2024 3:25 PM EDT) Lipase 15 13 - 75 unit/L LAB CHEMISTRY METHOD 06/08/2024 4:20 PM EDT [facility] Blood Venous blood specimen / Unknown Venipuncture / Unknown 06/08/2024 3:25 PM EDT 06/08/2024 3:44 PM EDT us Peter Narvaez MD LAB BLOOD ORDERABLES Final Res ult Performing Organization Address [facility] Co de Phone Number [facility] [address] [place] [address], [place] [phone] * Ethanol (06/08/2024 3:25 PM EDT) [facility] Ethanol Level 4 0 - 10 mg/dL LAB CHEMISTRY METHOD 06/08/2024 4:20 PM EDT [facility] Blood Venous blood specimen / Unknown Venipuncture / Unknown 06/08/2024 3:25 PM EDT 06/08/2024 3:44 PM EDT us Peter Narvaez MD LAB BLOOD ORDERABLES Final Res ult Performing Organization Address [facility]/ZIP Co de Phone Number [facility] [address] [place] [address], [place] [phone] * (ABNORMAL) Acetaminophen level (06/08/2024 3:25 PM EDT) Acetaminophen Level <2.0(L) 10.0 - 30.0 mcg/mL LAB CHEMISTRY METHOD 06/08/2024 4:24 PM EDT [facility] Blood Venous blood specimen / Unknown Venipuncture / Unknown 06/08/2024 3:25 PM EDT 06/08/2024 3:44 PM EDT Peter Narvaez MD LAB BLOOD ORDERABLES Final Res ult Performing Organization Address [facility]/ZIP Co de Phone Number [facility] [address] [place] [address], [place] [phone] * Salicylate level (06/08/2024 3:25 PM EDT) Salicylate Level 4.8 2.0 - 29.0 mg/dL LAB CHEMISTRY METHOD 06/08/2024 4:20 PM EDT [facility] Blood Venous blood specimen / Unknown Venipuncture / Unknown 06/08/2024 3:25 PM EDT 06/08/2024 3:44 PM EDT Peter Narvaez MD LAB BLOOD ORDERABLES Final Res ult Performing Organization Address [facility] de Phone Number [facility] [address] [place] [address], [place] [phone] * (ABNORMAL) Comprehensive metabolic panel (06/08/2024 3:25 PM EDT) Only the most recent of2 resultswithin the time period is included. Sodium 135 133 - 145 mmol/L LAB CHEMISTRY METHOD 06/08/2024 4:20 PM EDT [facility] Potassium 4.2 3.5 - 5.5 mmol/L LAB CHEMISTRY METHOD 06/08/2024 4:20 PM EDT [facility] Chloride 101 96 - 110 mmol/L LAB CHEMISTRY METHOD 06/08/2024 4:20 PM EDT [facility] CO2 28 21 - 32 mmol/L LAB CHEMISTRY METHOD 06/08/2024 4:20 PM [facility] Anion Gap 6 3 - 11 LAB CHEMISTRY METHOD 06/08/2024 4:20 PM [facility] Glucose 113(H) 70 - 100 mg/dL LAB CHEMISTRY METHOD 06/08/2024 4:20 PM [facility] BUN 12 5 - 25 mg/dL LAB CHEMISTRY METHOD 06/08/2024 4:20 PM [facility] Creatinine 0.75 0.70 - 1.30 mg/dL LAB CHEMISTRY METHOD 06/08/2024 4:20 PM [facility] eGFR 106 >=60 mL/min/1. 73m2 LAB CHEMISTRY METHOD 06/08/2024 4:20 PM [facility] Comment:Calculation based on the Chronic Kidney Disease Epidemiology Collaboration (CKD-EPI) equation refit without adjustment for race. BUN/Creatinine Ratio 16.0 LAB CHEMISTRY METHOD 06/08/2024 4:20 PM [facility] Calcium 9.5 8.5 - 10.5 mg/dL LAB CHEMISTRY METHOD 06/08/2024 4:20 PM [facility] AST (SGOT) 19 10 - 42 unit/L LAB CHEMISTRY METHOD 06/08/2024 4:20 PM [facility] ALT (SGPT) 37 10 - 60 unit/L LAB CHEMISTRY METHOD 06/08/2024 4:20 PM [facility] Alkaline Phosphatase 65 42 - 121 unit/L LAB CHEMISTRY METHOD 06/08/2024 4:20 PM [facility] Total Protein 7.6 6.0 - 8.0 g/dL LAB CHEMISTRY METHOD 06/08/2024 4:20 PM [facility] Albumin 4.6 3.2 - 5.0 g/dL LAB CHEMISTRY METHOD 06/08/2024 4:20 PM [facility] Total Bilirubin 0.5 0.0 - 1.4 mg/dL LAB CHEMISTRY METHOD 06/08/2024 4:20 PM EDT [facility] Blood Venous blood specimen / Unknown Venipuncture / Unknown 06/08/2024 3:25 PM EDT 06/08/2024 3:44 PM EDT Peter Narvaez MD LAB BLOOD ORDERABLES Final Res ult Performing Organization Address City/[facility]/ZIP Co de Phone Number [facility] [address] [place] [address], [place] [phone] * ECG 12 lead (06/08/2024 3:21 PM EDT) Ventricular Rate ECG 63 BPM GEMUSE Atrial Rate 63 BPM GEMUSE P-R Interval 156 ms GEMUSE QRS Duration 94 ms GEMUSE Q-T Interval 434 ms GEMUSE QTc 444 ms GEMUSE P Wave [place] 29 degrees GEMUSE R [place] 54 degrees GEMUSE T [place] 32 degrees GEMUSE ECG Interpretation Normal sinus rhythm Normal ECG No previous ECGs available Confirmed by MD Curt, [place] ([id number]) on 06/09/2024 8:34:36 AM GEMUSE 06/08/2024 3:21 PM EDT 06/09/2024 8:34 AM EDT Peter Narvaez MD ECG ORDERABLES Final Result Performing Organization Address [facility]/ZIP Co de Phone Number GEMUSE from Last 3 Months Insurance [facility] Advance Directives * Full Code - Default (Latest Code Status on File) Date Activated Date Inactivated Comments 06/08/2024 5:07 PM 06/14/2024 6:32 PM This is order is used when code status has not been discussed with the patient, or code status is otherwise unknown/unconfirmed To update the patient's code status, place a code status order. Do not modify or discontinue any currently active code status orders. Care Teams Digital Performance Analyst Relationship Specialty Start Date End Date Jose Angel Blair MD [address] [place] [address] PCP - General Internal Medicine 11/26/17
== END 2024-08-26 14:29 | disposition home or self-care (01) ==
LOC: HO.HCC 13:34
PROVIDERS: PCP Internal Medicine; Visit Provider Clinical Nurse Specialist Psychiatric/Mental Health
DX: F11.21 Opioid dependence, in remission (principal)
CPT/HCPCS: 99213

== ENCOUNTER 2024-09-09 13:00 | Outpatient (AMB) | payer OTHER, SELFPAY ==
[2024-09-09 13:10] VITALS: BP 136/78; PULSE 70; O2SAT 98; BMI 30.4
--- NOTE | 2024-09-09 13:10 | MHC.OFFVIS ---
Vital Signs 09/09/24 13:10 Height 6 ft 2 in Weight 237 lb BMI 30.4 BP 136/78 Pulse 70 Pulse Oximetry (%) 98 Intake Visit Reasons: MAT Allergies No Known Allergies Allergy (Verified 08/26/24 14:10) HPI Comments Details: The patient is a 54-year-old male presents for follow up r/t DESIRE in remission. Reports feeling stable on buprenorphine-naloxone 4-1 mg daily and demies use of opioids, alcohol, or other substances. Engages in conversation re: celebrating three months of sobriety by getting a tattoo with initial date and looking forward to a family vacation to [place]. Review of Systems Const All systems reviewed & are unremarkable except as noted in HPI and below Physical Exam Vital Signs: Last Vital Signs Pulse 70 09/09/24 13:10 BP 136/78 09/09/24 13:10 Pulse Ox 98 09/09/24 13:10 BMI result Body Mass Index 30.4 Const General: cooperative Orientation/consciousness: patient oriented x3 Limitations: no limitations Neuro General: patient oriented x3 Psych Appearance: well kempt Mental Status: mental status grossly normal Speech and movement: Normal speech and movement present Affect: normal affect Attitude: cooperative Thought process: Normal thought process present Thought content: Normal thought content present Insight: Good insight present (Psych) Judgement: Good judgement present (Psych) Assessment & Plan Assessment & Plan (1) Opioid use disorder, moderate, in sustained remission: Code(s): F11.21 - Opioid dependence, in remission Category: Medical Plan The plan of care is to continue with buprenorphine-naloxone 4-1 mg daily and follow up in one month. Medications: Refilled buprenorphine-naloxone 4-1 mg (Suboxone) one film sublingually daily. 1 film sublingual Q24H 14 ea 1RF 14 days Patient Instructions: - Continue with buprenorphine-naloxone 4-1 mg daily. - Follow up in one month or sooner, if needed. - Call with questions, concerns, or to reports side effects/new onset of symptoms. - The patient verbalized understanding and agreed with plan of care. Coding Level of Care Code Est Pt Level 3 (05953) Diagnoses Opioid use disorder, moderate, in sustained remission F11.21
--- OUTSIDE RECORDS SUMMARY | 2024-09-09 13:11 | XMS_ITS ---
Author Name [facility] Organization Unknown Care Team Organization Name Specialty Phone Email Start Date End Da te [facility] 05/14/2022 [facility] 12/18/2021
--- OUTSIDE RECORDS SUMMARY | 2024-09-09 13:11 | XMS_ITS | Clinical Summary ---
Author Organization LL [address] [facility] Address [address] [place] [address] Phone Care Team Providers Care Package Dyeing Machine Operator Name Role Phone Jose Angel Blair MD [...] disorder 06/11/2024 Benzodiazepine [place] wi th complication [place] [place] [facility] [place] 06/08/2024 Resolved Problems Problem Noted Date Diagnosed Date Resolved Date Alcohol withdrawal syndrome without complication ([facility] [place] [facility] [place] 06/11/2024 06/11/2024 Encounters Date Type Department Care Team Description 06/08/2024 3:14 PM EDT - 06/14/2024 4:28 PM EDT Hospital Encounter [facility] [address] [place] [id number] Peter Narvaez MD Japaridze, Anna, MD Zipagan, James T, MD Benzodiazepine withdrawal with complication ([facility] [place] [facility] [place] (Primary Dx); Alcohol use disorder; Alcohol withdrawal syndrome without complication [place] [place] [facility] [place] Discharge Disposition: Another Health Care Institution Not Defined from Last 3 Months Medical History Medical History Date Comments ETOH abuse Opiate dependence [place] [place] [facility] [place] Anxiety Depression Insomnia Family History Medical [...] Years (1 of 2 - PCV) 1987 Depression Screening 02/11/2024 Cholesterol Screening (Lipid Panel) 03/16/2024 Colorectal Cancer Screening: Colonoscopy 03/16/2024 HIV Screening 03/16/2024 Hepatitis C Screening [...] METABOLIC PANEL Routine 06/09/2024 5:42 AM EDT from Last 3 Months Results * ECG-Annotated (06/15/2024) us Provider Onbase MD ECG ORDERABLES Final Result * (ABNORMAL) CBC auto differential (06/13/2024 6:03 AM EDT) Only the most recent of2 resultswithin the time period is included. WBC 8.8 4.8 - 10.8 K/[facility] LAB HEMETOLOGY METHOD 06/13/2024 7:01 AM [facility] RBC 4.60 4.50 - 5.50 M/mcL LAB HEMETOLOGY METHOD 06/13/2024 7:01 AM [facility] Hemoglobin 14.8 13.5 - 17.5 g/dL LAB HEMETOLOGY METHOD 06/13/2024 7:01 AM [facility] Hematocrit 43.4 42.0 - 54.0 % LAB HEMETOLOGY METHOD 06/13/2024 7:01 AM [facility] MCV 93.5 79.0 - 98.0 FL LAB HEMETOLOGY METHOD 06/13/2024 7:01 AM [facility] MCH 31.9 27.0 - 32.0 pcg LAB HEMETOLOGY METHOD 06/13/2024 7:01 AM [facility] MCHC 34.1 32.0 - 37.0 g/dL LAB HEMETOLOGY METHOD 06/13/2024 7:01 AM [facility] RDW 11.9 11.0 - 15.0 % LAB HEMETOLOGY METHOD 06/13/2024 7:01 AM [facility] Platelets 202 130 - 400 K/mcL LAB HEMETOLOGY METHOD 06/13/2024 7:01 AM [facility] MPV 12.2(H) 7.0 - 11.0 FL LAB HEMETOLOGY METHOD 06/13/2024 7:01 AM [facility] NRBC 0.0 <1.0 % LAB HEMETOLOGY METHOD 06/13/2024 7:01 AM [facility] NRBC Absolute 0.00 <0.10 K/mcL LAB HEMETOLOGY METHOD 06/13/2024 7:01 AM [facility] Neutrophils Relative 64.3 % LAB HEMETOLOGY METHOD 06/13/2024 7:01 AM [facility] Lymphocytes Relative 25.6 % LAB HEMETOLOGY METHOD 06/13/2024 7:01 AM [facility] Monocytes Relative 6.5 % LAB HEMETOLOGY METHOD 06/13/2024 7:01 AM [facility] Eosinophils Relative 2.5 % LAB HEMETOLOGY METHOD 06/13/2024 7:01 AM [facility] Basophils Relative 0.8 % LAB HEMETOLOGY METHOD 06/13/2024 7:01 AM [facility] Immature Granulocytes Relative 0.3 % LAB HEMETOLOGY METHOD 06/13/2024 7:01 AM [facility] Neutrophils Absolute 5.64 1.50 - 7.00 K/mcL LAB HEMETOLOGY METHOD 06/13/2024 7:01 AM [facility] Lymphocytes Absolute 2.25 1.00 - 5.00 K/mcL LAB HEMETOLOGY METHOD 06/13/2024 7:01 AM [facility] Monocytes Absolute 0.57 0.20 - 1.00 K/mcL LAB HEMETOLOGY METHOD 06/13/2024 7:01 AM [facility] Eosinophils Absolute 0.22 0.00 - 0.50 K/mcL LAB HEMETOLOGY METHOD 06/13/2024 7:01 AM [facility] Basophils Absolute 0.07 0.00 - 0.20 K/mcL LAB HEMETOLOGY METHOD 06/13/2024 7:01 AM [facility] Immature Granulocytes Absolute 0.03 0.00 - 0.03 K/mcL LAB HEMETOLOGY METHOD 06/13/2024 7:01 AM [facility] Blood Venous blood specimen / Unknown Venipuncture / Unknown 06/13/2024 6:03 AM EDT 06/13/2024 6:48 AM EDT us Joan Berger MD LAB BLOOD ORDERABLES Final Res ult [facility] [address] [place] [address], [place] [phone] * (ABNORMAL) Basic metabolic panel (06/13/2024 6:03 AM EDT) Only the most recent of3 resultswithin the time period is included. Sodium 136 133 - 145 mmol/L LAB CHEMISTRY METHOD 06/13/2024 7:22 AM [facility] Potassium 4.0 3.5 - 5.5 mmol/L LAB CHEMISTRY METHOD 06/13/2024 7:22 AM [facility] Chloride 101 96 - 110 mmol/L LAB CHEMISTRY METHOD 06/13/2024 7:22 AM [facility] CO2 30 21 - 32 mmol/L LAB CHEMISTRY METHOD 06/13/2024 7:22 AM [facility] Anion Gap 5 3 - 11 LAB CHEMISTRY METHOD 06/13/2024 7:22 AM [facility] Glucose 99 70 - 100 mg/dL LAB CHEMISTRY METHOD 06/13/2024 7:22 AM [facility] BUN 9 5 - 25 mg/dL LAB CHEMISTRY METHOD 06/13/2024 7:22 AM [facility] Creatinine 0.68(L) 0.70 - 1.30 mg/dL LAB CHEMISTRY METHOD 06/13/2024 7:22 AM [facility] eGFR 109 >=60 mL/min/1. 73m2 LAB CHEMISTRY METHOD 06/13/2024 7:22 AM [facility] Comment:Calculation based on the Chronic Kidney Disease Epidemiology Collaboration (CKD-EPI) equation refit without adjustment for race. BUN/Creatinine Ratio 13.2 LAB CHEMISTRY METHOD 06/13/2024 7:22 AM [facility] Calcium 9.2 8.5 - 10.5 mg/dL LAB CHEMISTRY METHOD 06/13/2024 7:22 AM EDT [facility] Blood Venous blood specimen / Unknown Venipuncture / Unknown 06/13/2024 6:03 AM EDT 06/13/2024 6:47 AM EDT Joan Berger MD LAB BLOOD ORDERABLES Final Res ult Performing Organization Address City/[facility]/ZIP Co de Phone Number [facility] [address] [place] [address], [place] [phone] * Magnesium (06/10/2024 5:42 AM EDT) Only the most recent of2 resultswithin the time period is included. Magnesium 2.4 1.9 - 2.6 mg/dL LAB CHEMISTRY METHOD 06/10/2024 7:12 AM EDT [facility] Blood Venous blood specimen / Unknown Venipuncture / Unknown 06/10/2024 5:42 AM EDT 06/10/2024 6:20 AM EDT us Joan Berger MD LAB BLOOD ORDERABLES Final Res ult Performing Organization Address [facility]/ZIP Co de Phone Number [facility] [address] [place] [address], [place] [phone] * (ABNORMAL) Complete blood count (06/09/2024 5:42 AM EDT) WBC 7.3 4.8 - 10.8 K/mcL LAB HEMETOLOGY METHOD 06/09/2024 8:57 AM EDT [facility] RBC 4.40(L) 4.50 - 5.50 M/mcL LAB HEMETOLOGY METHOD 06/09/2024 8:57 AM EDT [facility] Hemoglobin 14.1 13.5 - 17.5 g/dL LAB HEMETOLOGY METHOD 06/09/2024 8:57 AM EDT [facility] Hematocrit 41.4(L) 42.0 - 54.0 % LAB HEMETOLOGY METHOD 06/09/2024 8:57 AM EDT [facility] MCV 93.2 79.0 - 98.0 FL LAB HEMETOLOGY METHOD 06/09/2024 8:57 AM EDT [facility] MCH 31.8 27.0 - 32.0 pcg LAB HEMETOLOGY METHOD 06/09/2024 8:57 AM EDT [facility] MCHC 34.1 32.0 - 37.0 g/dL LAB HEMETOLOGY METHOD 06/09/2024 8:57 AM EDT [facility] RDW 11.9 11.0 - 15.0 % LAB HEMETOLOGY METHOD 06/09/2024 8:57 AM EDT [facility] Platelets 177 130 - 400 K/mcL LAB HEMETOLOGY METHOD 06/09/2024 8:57 AM EDT [facility] MPV 12.1(H) 7.0 - 11.0 FL LAB HEMETOLOGY METHOD 06/09[facility]24 [facility] NRBC 0.0 <1.0 % LAB HEMETOLOGY METHOD 06/09/2024 8:57 AM EDT [facility] NRBC Absolute 0.00 <0.10 K/mcL LAB HEMETOLOGY METHOD 06/09/2024 8:57 AM [facility] Blood Venous blood specimen / Unknown Venipuncture / Unknown 06/09/2024 5:42 AM EDT 06/09/2024 6:53 AM EDT us Peter Narvaez MD LAB BLOOD ORDERABLES Final Res ult [facility] [address] [place] [address], [place] [phone] * Phosphorus (06/09/2024 5:42 AM EDT) Phosphorus 2.5 2.5 - 4.5 mg/dL LAB CHEMISTRY METHOD 06/09/2024 6:00 PM EDT [facility] Blood Venous blood specimen / Unknown Venipuncture / Unknown 06/09/2024 5:42 AM EDT 06/09/2024 6:53 AM EDT us Joan Berger MD LAB BLOOD ORDERABLES Final Res ult [facility] [address] [place] [address], [place] [phone] from Last 3 Months Insurance P Advance Directives * Full Code - Default [...] currently active code status orders. Care Teams Package Dyeing Machine Operator Relationship Specialty Start Date End Date Jose Angel Blair MD [address] [place] [address] PCP - General Internal Medicine 11/26/17
== END 2024-09-09 13:25 | disposition home or self-care (01) ==
LOC: HO.HCC 13:01
PROVIDERS: PCP Internal Medicine; Visit Provider Clinical Nurse Specialist Psychiatric/Mental Health
DX: F11.21 Opioid dependence, in remission (principal)
CPT/HCPCS: 99213

== ENCOUNTER 2024-10-06 14:45 | Outpatient (AMB) | payer OTHER, SELFPAY ==
[2024-10-06 14:52] VITALS: BP 140/78; PULSE 72; O2SAT 97; BMI 30.4
--- NOTE | 2024-10-06 14:52 | MHC.OFFVIS ---
Vital Signs 10/06/24 14:52 Height 6 ft 2 in Weight 237 lb BMI 30.4 BP 140/78 H Pulse 72 Pulse Oximetry (%) 97 Intake Visit Reasons: MAT Allergies No Known Allergies Allergy (Verified 10/06/24 14:53) Medication List - Last Reconciled 10/06/24 by CLARI Hinton mirtazapine (Remeron SolTab) 45 mg PO BEDTIME valacyclovir 500 mg PO DAILY HPI Comments Details: A 54-year-old male presents for follow-up r/t DESIRE in sustained remission with buprenorphine-naloxone. Denies use of opiates, alcohol, and other substances with the exception of vaping intermittently for nicotine. The patient verbalizes readiness to decrease dose of buprenorphine-naloxone from 4 mg to 2 mg daily. Continues to attend [facility] 3 times and lives in a sober home in [place]. Review of Systems Const All systems reviewed & are unremarkable except as noted in HPI and below Physical Exam Vital Signs: Last Vital Signs Pulse 72 10/06/24 14:52 BP 140/78 H 10/06/24 14:52 Pulse Ox 97 10/06/24 14:52 BMI result Body Mass Index 30.4 Const General: cooperative Assessment & Plan Assessment & Plan (1) Opioid use disorder, moderate, in sustained remission: Code(s): F11.21 - Opioid dependence, in remission Category: Medical Plan Plan of care is to decrease the dose of buprenorphine-naloxone from 4 mg to 2 mg daily per patient request and follow-up in 6 weeks or sooner if needed. Medications: New buprenorphine-naloxone 2-0.5 mg (Suboxone) One film sublingually daily 1 film sublingual DAILY 30 ea 0RF 30 days Patient Instructions: - Start on the decreased dose of buprenorphine-naloxone as prescribed. - follow-up in 6 weeks or sooner if needed. - Call with questions, concerns, or to report side effects/new onset of symptoms to [facility]. - The patient verbalized understanding and agreed with plan of care. Coding Level of Care Code Est Pt Level 3 (76902) Diagnoses Opioid use disorder, moderate, in sustained remission F11.21
--- OUTSIDE RECORDS SUMMARY | 2024-10-06 16:07 | XMS_ITS | Clinical Summary ---
Author Organization LL [address] [facility] Address [address] [place] [address] Phone Care Team Providers Care Produce Field Merchandiser Name Role Phone Jose Angel Blair MD [...] medical assistance becomes available. 2 each 3 Active venlafaxine XR (EFFEXOR-XR) 75 mg 24 hr capsule Take 1 capsule (75 mg total) by mouth 1 (one) time each day with breakfast. Do not crush or chew. 30 each 11 5 06/16/19 26 Active Active Problems Problem Noted Date Diagnosed Date Alcohol use disorder 06/11/2024 Benzodiazepine withdrawal wi th complication [place] [place] [facility] [place] 06/08/2024 Resolved Problems Problem Noted Date Diagnosed Date Resolved Date Alcohol withdrawal syndrome without complication [place] [place] [facility]) 06/11/2024 06/11/2024 Medical History Medical History Date Comments ETOH abuse Opiate dependence [place] [place] [facility] [place] Anxiety Depression Insomnia Family History Medical [...] on patient's age to complete this topic Insurance [facility] Advance Directives * Full Code - Default [...] currently active code status orders. Care Teams Produce Field Merchandiser Relationship Specialty Start Date End Date Jose Angel Blair MD [address] [place] [address] PCP - General Internal Medicine 11/26/17
== END 2024-10-06 15:17 | disposition home or self-care (01) ==
LOC: HO.HCC 14:46
PROVIDERS: PCP Internal Medicine; Visit Provider Clinical Nurse Specialist Psychiatric/Mental Health
DX: F11.21 Opioid dependence, in remission (principal)
CPT/HCPCS: 99213